=== PATIENT | male | born 1990 | race Caucasian/White ===

== ENCOUNTER → 2016-09-19 | Outpatient (CLI) | payer BC ==
--- NOTE | 2016-09-19 12:07 | CR ---
EXAMINATION: Two-view chest (PA and Lateral views). HISTORY: Hyperhidrosis. FINDINGS: The trachea is midline. The cardiomediastinal silhouette is within normal limits. No pulmonary infil trates, effusions or pneumothorax. Osseous structures appear unremarkable. IMPRESSION: No acute cardiopulmonary process.
== END ==
LOC: MW.CHFP 10:48
PROVIDERS: ATTEND Emergency Medicine
DX: R61 Generalized hyperhidrosis (principal); R05 Cough; R09.89 Other specified symptoms and signs involving the circulatory and respiratory systems; Z20.5 Contact with and (suspected) exposure to viral hepatitis
CPT/HCPCS: 36415; 71020; 71020-26; 85025; 86803